=== PATIENT | male | born 1955 | race Caucasian/White ===

== ENCOUNTER 2019-01-23 12:04 | Emergency (ER) | payer MEDICAID, OTHER ==
[~2019-01-23] VITALS: Ht 167.6 cm; Wt 70.0 kg
[~2019-01-23 12:04] MED LIST: FERR-63 PO; FLUO-124 PO; OMEP20TA2 PO; SUCR1ORA2 PO
[2019-01-23 12:09] VITALS: BP 105/84
[2019-01-23] MEDS ORDERED: TETANUS, DIPHTHERIA, PERTUSSIS VAC/PF 0.5ML (>7YR OLD) IM ONE (13:00)
[2019-01-23] MEDS ORDERED: LIDOCAINE HCL/EPINEPHRINE 1%-EPI 1:100,000 20 ML VIAL INFIL ONE (13:00)
== END 2019-01-23 14:54 | disposition home or self-care (01) ==
LOC: ER 12:04
DX: S01.111A Laceration without foreign body of right eyelid and periocular area, initial encounter (principal); S00.83XA Contusion of other part of head, initial encounter; V18.0XXA Pedal cycle driver injured in noncollision transport accident in nontraffic accident, initial encounter; Y93.55 Activity, bike riding; Y92.89 Other specified places as the place of occurrence of the external cause
CPT/HCPCS: 12011; 70486; 90471; 90715; 99284; J3490

== ENCOUNTER 2022-09-19 12:19 | Emergency (ER) | payer MEDICAID ==
[~2022-09-19] VITALS: Ht 157.5 cm; Wt 72.0 kg
[~2022-09-19 12:19] MED LIST changes: -FLUO-124 PO; +FLUO20CA39 PO; -OMEP20TA2 PO; +OMEP20TA23 PO
[2022-09-19 12:25] VITALS: BP 141/90; PULSE 80; RESP 16; TEMP 98.5; O2SAT 98
== END 2022-09-19 15:24 | disposition home or self-care (01) ==
LOC: ER 14:15
DX: S01.111A Laceration without foreign body of right eyelid and periocular area, initial encounter (principal); M54.2 Cervicalgia; I10 Essential (primary) hypertension; W18.30XA Fall on same level, unspecified, initial encounter; Y93.89 Activity, other specified; Y92.89 Other specified places as the place of occurrence of the external cause; Y99.8 Other external cause status
CPT/HCPCS: 70450; 70486; 12011; 99284; Z7610